=== PATIENT | male | born 1930 | race African-American/Black ===

== ENCOUNTER 2017-03-08 16:12 | Observation (INO) | payer MEDICARE, MEDICAID ==
[~2017-03-08] VITALS: Ht 167.6 cm; Wt 69.9 kg
[2017-03-08 17:35] VITALS: BP 165/89
[2017-03-08 17:36] LABS: BASOPHILS % (AUTO) 2.2 % (0.0-2.0); EOSINOPHILS % (AUTO) 3.1 % (0.0-3.0); LYMPHOCYTES % (AUTO) 20.8 % (20.0-45.0); MEAN CORPUSCULAR HEMOGLOBIN 32.9 PG (27.0-31.0); MEAN CORPUSCULAR HGB CONC 34.8 G/DL (32.0-36.0); MEAN CORPUSCULAR VOLUME 94 FL (80-99); MEAN PLATELET VOLUME 6.2 FL (6.5-10.1); MONOCYTES % (AUTO) 7.7 % (1.0-10.0); NEUTROPHILS % (AUTO) 66.2 % (45.0-75.0); PLATELET COUNT 179 K/UL (150-450); RED BLOOD COUNT 4.21 M/UL (4.70-6.10); RED CELL DISTRIBUTION WIDTH 12.7 % (11.6-14.8); WHITE BLOOD COUNT 8.9 K/UL (4.8-10.8)
[2017-03-08] MEDS ORDERED: D5 1/2NS 1000ml IV ONE (17:42)
[2017-03-08 17:45] LABS: TROPONIN I < 0.30 ng/mL (<=0.30)
[2017-03-08 17:48] LABS: ACETAMINOPHEN < 10 ug/mL (10-30); ALANINE AMINOTRANSFERASE 17 U/L (3-41); ALBUMIN/GLOBULIN RATIO 1.6 (1.0-2.7); ALCOHOL < 10 mg/dL; ANION GAP 16 (5-15); ASPARTATE AMINO TRANSFERASE 25 U/L (5-40); CALCIUM 10.2 mg/dL (8.6-10.2); CARBON DIOXIDE 23 mEQ/L (20-30); CHLORIDE 105 mEQ/L (98-107); CREATININE 1.6 mg/dL (0.7-1.2); HEMOLYSIS 20; POTASSIUM 4.2 mEQ/L (3.4-4.9); SODIUM 144 mEQ/L (135-145); TOTAL PROTEIN 7.3 g/dL (6.6-8.7)
[2017-03-08 17:59] LABS: CKMB 2.1 ng/mL (< 6.7)
[2017-03-08 18:10] LABS: BILIRUBIN,DIRECT 0.2 mg/dL (0.1-0.3)
--- NOTE | 2017-03-08 19:55 | Emergency Room Report ---
History of Present Illness General Chief Complaint: Altered Mental Status Source: EMS Present Illness HPI 87-year-old male presents ED for evaluation. Per EMS patient was found sitting on bench outside. Patient appears confused, altered. Patient is unable to provide any additional history at this time. Patient showing no signs of distress. No signs of injury. No other aggravating relieving factors. Denies any other associated symptoms Allergies: Coded Allergies: No Known Allergies (Unverified , 03/08/17) Patient History Past Medical History: none Past Surgical History: none Pertinent Family History: none Social History: Denies: smoking, alcohol use, drug use Immunizations: UTD Reviewed Nursing Documentation: PMH: Agreed, PSxH: Agreed Nursing Documentation-PMH Past Medical History: Deferred Review of Systems All Other Systems: negative except mentioned in HPI Physical Exam Vital Signs Date Time Temp Pulse Resp B/P (MAP) Pulse Ox O2 Delivery O2 Flow Rate FiO2 03/08/17 16:08 99.1 100 24 140/77 100 Room Air Sp02 EP Interpretation: reviewed, normal General Appearance: no apparent distress, alert, GCS 15, non-toxic Head: normocephalic, atraumatic Eyes: bilateral eye normal inspection, bilateral eye PERRL ENT: hearing grossly normal, normal pharynx, no angioedema, normal voice Neck: full range of motion, supple/symm/no masses Respiratory: chest non-tender, lungs clear, normal breath sounds, speaking full sentences Cardiovascular #1: regular rate, rhythm, no edema Cardiovascular #2: 2+ carotid (R), 2+ carotid (L), 2+ radial (R), 2+ radial (L) , 2+ dorsalis pedis (R), 2+ dorsalis pedis (L) Gastrointestinal: normal bowel sounds, non tender, soft, non-distended, no guarding, no rebound Rectal: deferred Genitourinary: normal inspection, no CVA tenderness Musculoskeletal: back normal, gait/station normal, normal range of motion, non- tender Neurologic: alert, motor strength/tone normal, sensory intact, other - confused Psychiatric: other - confused Reflexes: 3+ bicep (R), 3+ bicep (L), 3+ tricep (R), 3+ tricep (L), 3+ knee (R) , 3+ knee (L) Skin: normal color, no rash, warm/dry, well hydrated Lymphatic: no adenopathy Medical Decision Making Diagnostic Impression: Primary Impression: Altered mental status Qualified Codes: R41.82 - Altered mental status, unspecified Additional Impression: Dehydration ER Course Hospital Course 87-year-old male presents ED found outside on bench, confused Differential diagnoses include: OK/unstable angina, arrythmia, dehydration, CVA/ TIA Clinical course Patient placed on stretcher. on e/m engineer. After initial history and physical I ordered labs, EKG, chest x-ray, IVFs, CT Brain labs reviewed- no leukocytosis, hemoglobin/hematocrit ok, BUN/Cr elevated. Troponins negative EKG-1st degree av block, no acute ischemic changes interpreted by me Chest x-ray- no acute process CT brain-unremarkable Patient given IV fluids. Patient resides in a memory care facility. Case discussed with Dr. Ley and he agreed to accept the patient to his service for further care and support I. I feel this is a highly complex case requiring extensive working including EKG/Rhythm strip, Xray/CT/US, Blood/urine lab work, repeat exams while in ED, and administration of strong opiates/narcotics for pain control, admission to hospital or close patient follow up. Diagnosis - AMS, dehydration admitted to floor in serious condition Labs Test 03/08/17 17:10 03/08/17 17:55 White Blood Count 8.9 K/UL (4.8-10.8) Red Blood Count 4.21 M/UL (4.70-6.10) Hemoglobin 13.8 G/DL (14.2-18.0) Hematocrit 39.7 % (42.0-52.0) Mean Corpuscular Volume 94 FL (80-99) Mean Corpuscular Hemoglobin 32.9 PG (27.0-31.0) Mean Corpuscular Hemoglobin Concent 34.8 G/DL (32.0-36.0) Red Cell Distribution Width 12.7 % (11.6-14.8) Platelet Count 179 K/UL (150-450) Mean Platelet Volume 6.2 FL (6.5-10.1) Neutrophils (%) (Auto) 66.2 % (45.0-75.0) Lymphocytes (%) (Auto) 20.8 % (20.0-45.0) Monocytes (%) (Auto) 7.7 % (1.0-10.0) Eosinophils (%) (Auto) 3.1 % (0.0-3.0) Basophils (%) (Auto) 2.2 % (0.0-2.0) Sodium Level 144 mEQ/L (135-145) Potassium Level 4.2 mEQ/L (3.4-4.9) Chloride Level 105 mEQ/L (98-107) Carbon Dioxide Level 23 mEQ/L (20-30) Anion Gap 16 (5-15) Blood Urea Nitrogen 28 mg/dL (7-23) Creatinine 1.6 mg/dL (0.7-1.2) Estimat Glomerular Filtration Rate mL/min (>60) Glucose Level 139 mg/dL (74-106) Calcium Level 10.2 mg/dL (8.6-10.2) Total Bilirubin 1.1 mg/dL (0.0-1.2) Direct Bilirubin 0.2 mg/dL (0.1-0.3) Aspartate Amino Transf (AST/SGOT) 25 U/L (5-40) Alanine Aminotransferase (ALT/SGPT) 17 U/L (3-41) Alkaline Phosphatase 65 U/L (40-129) Total Creatine Kinase 159 U/L (38-174) Creatine Kinase MB 2.1 ng/mL (< 6.7) Creatine Kinase MB Relative Index 1.3 Troponin I < 0.30 ng/mL (<=0.30) Total Protein 7.3 g/dL (6.6-8.7) Albumin 4.5 g/dL (3.5-5.2) Globulin 2.8 g/dL Albumin/Globulin Ratio 1.6 (1.0-2.7) Salicylates Level < 1 mg/dL (10-30) Acetaminophen Level < 10 ug/mL (10-30) Serum Alcohol < 10 mg/dL Urine Opiates Screen Negative (NEGATIVE) Urine Barbiturates Screen Negative (NEGATIVE) Phencyclidine (PCP) Screen Negative (NEGATIVE) Urine Amphetamines Screen Negative (NEGATIVE) Urine Benzodiazepines Screen Negative (NEGATIVE) Urine Cocaine Screen Negative (NEGATIVE) Urine Marijuana (THC) Screen Negative (NEGATIVE) EKG Diagnostic Results Rate: normal Rhythm: other - 1st degree av block ST Segments: no acute changes ASA given to the pt in ED: No Rhythm Strip Diag. Results EP Interpretation: yes Rhythm: NSR, no PVC's, no ectopy Chest X-Ray Diagnostic Results Chest X-Ray Diagnostic Results : Chest X-Ray Ordered: Yes # of Views/Limited/Complete: 1 View Indication: Other - ams EP Interpretation: Yes Interpretation: no consolidation, no effusion, no pneumothorax, no acute cardiopulmonary disease Impression: No acute disease Interpreting ER Provider: Electronically signed by Gautam Cortes MD CT/MRI/US Diagnostic Results CT/MRI/US Diagnostic Results : Imaging Test Ordered: CT Head Impression no acute process Last Vital Signs Date Time Temp Pulse Resp B/P (MAP) Pulse Ox O2 Delivery O2 Flow Rate FiO2 03/08/17 17:35 99.1 78 18 165/89 99 Room Air Status: improved Disposition: ADMITTED INPATIENT Condition: Serious Referrals: NOT CHOSEN TEMO/,REFERRING (PCP) GAUTAM CORTES M.D. Mar 08, 2017 19:55
[2017-03-08] MEDS ORDERED: PLAVIX75 MG ORAL (21:14)
[2017-03-08] MEDS ORDERED: LEVOTHYROXINE100 MCG ORAL (21:14)
[2017-03-08] MEDS ORDERED: AMLODIPINE-ATO1 EAC1 ORAL (21:16)
[2017-03-08] MEDS ORDERED: XANAX0.25 MG ORAL (21:19)
[2017-03-08] MEDS ORDERED: TYLENOL EXTRA500 MG ORAL (21:20)
[2017-03-08 21:21] VITALS: BP 152/64
[2017-03-08 22:00] VITALS: BP 161/81
[2017-03-08] MEDS ORDERED: ALPRAZolam 0.25mg tab ORAL PRN (22:45)
[2017-03-08] MEDS ORDERED: Milk of Magnesia 30ml Ud ORAL PRN (22:45)
[2017-03-08] MEDS: D5 1/2NS 1,000 ML IV SCH (23:47)
[2017-03-09 04:30] VITALS: BP 155/77
--- NOTE | 2017-03-09 04:45 | History and Physical Report ---
DATE OF ADMISSION: 03/08/2017 CHIEF COMPLAINT AND REASON FOR HOSPITALIZATION: The patient is an 87-year-old man admitted with weakness and dehydration. HISTORY OF PRESENT ILLNESS: The patient lives in an assisted living facility. He is very hard of hearing and records accompanied the patient. I also spoke to his son, Dr. Colby Caldera, who filled me in on his history. The patient apparently was found on the street, very weak, unable to get up, and possibly dehydrated. He was apparently sitting on the ground and the paramedics were summoned. The patient has a history of a remote coronary stent many years ago, likely more than 20 years ago and a carotid endarterectomy. He is very hard of hearing. There is a history of hypothyroidism, on replacement, hypertension, and some mild cognitive impairment. PAST SURGICAL HISTORY: See history of present illness. MEDICATIONS: Plavix 75 mg daily, levothyroxine 100 mcg daily, amlodipine 5 mg daily, alprazolam 0.25 mg daily p.r.n., and Tylenol p.r.n. ALLERGIES: None known. SOCIAL HISTORY: He lives in an assisted living facility. SYSTEM REVIEW: HEENT: Hearing is very impaired. Vision is preserved. ENDOCRINE: History of hypothyroidism, on replacement. PULMONARY: No asthma, TB, or chronic cough. CARDIAC: History of remote coronary stent. No recent angina. No palpitations, arrhythmias, or congestive heart failure. GASTROINTESTINAL: No history of recurrent nausea, vomiting, or abdominal pain. GENITOURINARY: No dysuria or hematuria. NEUROLOGIC: No CVA, syncope, or seizures. PHYSICAL EXAMINATION: GENERAL: The patient is a well-developed man, alert, looks younger than his stated age, but is somewhat weak. VITAL SIGNS: Temperature 99.1 degrees, pulse 78, respirations 18, blood pressure 165/89, and pulse oximetry is 99%. HEENT: Sclerae are nonicteric. Ocular motions intact in all directions. Oral mucosa slightly dry. NECK: No adenopathy or thyroid enlargement. LUNGS: Clear. HEART: Regular rhythm. No murmur. ABDOMEN: Soft without organomegaly or masses. EXTREMITIES: No edema, cyanosis, or clubbing. NEUROLOGIC: He is alert and responsive. Ocular motions intact in all directions. Smile is symmetric. Tongue is midline. He moves all extremities. PERTINENT LABORATORIES: White count 8.9 and hemoglobin 13.8. Sodium 144, potassium 4.2, BUN 28, and creatinine 1.6. Glucose 139. Troponin less than 0.30. CK is 159. Liver enzymes are normal. Urinalysis pending. IMPRESSION: 1. Dehydration. 2. Heat exposure. 3. Episode of generalized weakness, likely due to the above. 4. Gait disorder secondary to the above. 5. History of hypothyroidism. 6. Remote history of coronary stenting. 7. History of hypertension. 8. History of hypothyroidism. 9. History of taking alprazolam. PLAN: The patient will be hydrated. We will check urine to make sure there is no urinary tract infection. We will watch if there are any new developments. We will respect directives for DNR as discussed with the patient's son. Joseph Ley M.D. DR: CHEYENNE JOB#: [id number] CC:
[2017-03-09 06:52] LABS: BASOPHILS % (AUTO) 1.6 % (0.0-2.0); EOSINOPHILS % (AUTO) 4.8 % (0.0-3.0); LYMPHOCYTES % (AUTO) 25.3 % (20.0-45.0); MEAN CORPUSCULAR HEMOGLOBIN 33.1 PG (27.0-31.0); MEAN CORPUSCULAR HGB CONC 34.2 G/DL (32.0-36.0); MEAN CORPUSCULAR VOLUME 97 FL (80-99); MEAN PLATELET VOLUME 7.3 FL (6.5-10.1); MONOCYTES % (AUTO) 8.5 % (1.0-10.0); NEUTROPHILS % (AUTO) 59.9 % (45.0-75.0); PLATELET COUNT 186 K/UL (150-450); RED BLOOD COUNT 3.99 M/UL (4.70-6.10); RED CELL DISTRIBUTION WIDTH 12.4 % (11.6-14.8); WHITE BLOOD COUNT 8.1 K/UL (4.8-10.8)
[2017-03-09 07:06] LABS: TROPONIN I < 0.30 ng/mL (<=0.30)
[2017-03-09 07:09] LABS: ALANINE AMINOTRANSFERASE 14 U/L (3-41); ALBUMIN/GLOBULIN RATIO 1.3 (1.0-2.7); ANION GAP 11 (5-15); ASPARTATE AMINO TRANSFERASE 21 U/L (5-40); CALCIUM 9.1 mg/dL (8.6-10.2); CARBON DIOXIDE 25 mEQ/L (20-30); CHLORIDE 104 mEQ/L (98-107); CREATININE 1.1 mg/dL (0.7-1.2); HEMOLYSIS 4; POTASSIUM 3.7 mEQ/L (3.4-4.9); SODIUM 140 mEQ/L (135-145); TOTAL PROTEIN 6.8 g/dL (6.6-8.7)
[2017-03-09 08:12] VITALS: BP 156/80
[2017-03-09] MEDS: Sulfacetamide 10% Opth Btl RIGHT EYE SCH ×2 (08:28→13:02)
[2017-03-09] MEDS: D5 1/2NS 1,000 ML IV SCH (08:37)
[2017-03-09 08:46] LABS: APPEARANCE,URINE CLEAR; KETONES,URINE NEGATIVE (NEGATIVE); LEUKOCYTE ESTERASE ,URINE 1+ (NEGATIVE); NITRITE,URINE NEGATIVE (NEGATIVE); PH,URINE 6 (4.5-8.0); PROTEIN,URINE NEGATIVE (NEGATIVE); UROBILINOGEN,URINE 4 MG/DL (0.0-1.0)
[2017-03-09 08:54] LABS: BACTERIA,URINE FEW /HPF; MUCUS,URINE FEW /LPF (NONE/OCC); SQUAMOUS EPITHELIAL CELL,UR OCCASIONAL /LPF (NONE/OCC); WBC,URINE 0-2 /HPF (0 - 0)
[2017-03-09] MEDS ORDERED: Heparin 5000 units/ml inj SUBQ SCH (09:00)
[2017-03-09] MEDS ORDERED: Sulfacetamide 10% Opth Btl RIGHT EYE SCH (09:00)
[2017-03-09 11:52] VITALS: BP 144/73
[2017-03-09 15:57] VITALS: BP 144/77
--- NOTE | 2017-03-09 23:00 | Discharge Summary ---
DATE OF ADMISSION: 03/08/2017 DATE OF DISCHARGE: 03/09/2017 PERTINENT HISTORY: The patient is an 87-year-old man who lives in assisted living facility. He was apparently found on the street, weak, unable to get up and walk possibly dehydrated. He was sitting on the ground. The paramedics were summoned. There is a remote history of coronary artery stent, history of hypothyroidism and impaired hearing. PERTINENT PHYSICAL FINDINGS: HEENT: The patient is very hard of hearing. Throat is clear. Oral mucosa is slightly dry. NECK: No adenopathy. LUNGS: Clear. HEART: Regular rhythm. No murmur. ABDOMEN: Soft without organomegaly or masses. EXTREMITIES: No edema. NEUROLOGIC: He is alert and responsive. There is no focal weakness. COURSE IN THE HOSPITAL: The patient was observed after being possibly over exposed in the heat and mildly dehydrated. His BUN 28 and creatinine 1.6 on admission and 23 and 1.1 on discharge after intravenous hydration. Serial troponins were normal. His exam remained stable. He did have some microscopic hematuria, 10 to 15 red cells per high-power field, and 0 to 2 white cells per high-power field, but no urinary symptoms. He was seen by physical therapy. He was able to ambulate with a cane and he had no prior back pain and a slightly unsteady gait but this was chronic. He felt improved and I discussed the situation with his family and he was discharged back to his assisted living facility in stable condition. FINAL DIAGNOSES: 1. Dehydration. 2. Heat exposure. 3. Chronic low back pain. 4. Gait disorder. 5. Remote history of coronary bypass surgery. 6. History of prior carotid surgery. 7. Gait disorder. DISCHARGE DISPOSITION: Back to his facility on a regular diet and as prior to admission medications. FOLLOWUP: Follow up by his primary care physician. Joseph Ley M.D. DR: PARKER JOB#: [id number] CC:
--- NOTE | 2017-03-10 08:36 | Diagnostic Imaging Report ---
Indication: Altered mental status Technique: spiral acquisitions obtained through the brain. Angled axial and coronal 5 x 5 mm slices were reconstructed. No IV contrast utilized. Radiation dose was minimized using automated exposure control Total dose length product 1351 mGycm. CTDIvol(s) 70 mGy Comparison: none FINDINGS: No acute hemorrhage or edema. No mass effect or midline shift. There is marked age-related enlargement of the ventricles and extra axial CSF spaces. There is periventricular deep white matter ischemic change. Normal christopher-white differentiation. There is evidence of prior bilateral cataract surgery. There is minimal bilateral ethmoid sinus and right maxillary sinus mucosal disease. There is extensive opacification and sclerosis of the mastoid air cells. Intact calvarium. IMPRESSION: Chronic and age-related changes. Negative for acute intracranial bleed or mass effect Evidence of chronic mastoid disease. Minimal ethmoid and right maxillary sinus disease This agrees with the preliminary interpretation provided overnight by [facility]. The CT scanner at [facility] is accredited by the [employer] and the scans are performed using protocols designed to limit radiation exposure to as low as reasonably achievable to attain images of sufficient resolution adequate for diagnostic evaluation
--- NOTE | 2017-03-10 08:38 | Diagnostic Imaging Report ---
Indication: Dyspnea Technique: One view of the chest Comparison: none Findings: Equivocal minimal bilateral costophrenic angle blunting. No acute infiltrates, effusions or congestion. Heart size is borderline enlarged. Aorta is tortuous ectatic and calcified. Calcifications are seen in the left axilla. Equivocal retrocardiac hiatal hernia incidentally noted Impression: Equivocal minimal bilateral costophrenic angle blunting, thickening versus fluid. No acute process otherwise Possible retrocardiac hiatal hernia This agrees with the preliminary interpretation provided overnight by [facility].
== END 2017-03-09 16:40 | disposition home or self-care (01) ==
LOC: EDBD 16:12 → EMR 16:50 → INTOOBSV 17:41 → 3E 17:41 → EDBEDREQ 19:46 → 4E 03-09 10:30
DX: E86.0 Dehydration (principal); X30.XXXA Exposure to excessive natural heat, initial encounter; Y92.89 Other specified places as the place of occurrence of the external cause; G89.29 Other chronic pain; M54.5 Low back pain; R26.9 Unspecified abnormalities of gait and mobility; H91.90 Unspecified hearing loss, unspecified ear; I44.0 Atrioventricular block, first degree; R53.1 Weakness; K44.9 Diaphragmatic hernia without obstruction or gangrene; H74.90 Unspecified disorder of middle ear and mastoid, unspecified ear; J32.2 Chronic ethmoidal sinusitis; J32.0 Chronic maxillary sinusitis; I10 Essential (primary) hypertension; Z79.02 Long term (current) use of antithrombotics/antiplatelets; Z95.1 Presence of aortocoronary bypass graft
CPT/HCPCS: 36415 ×2; 70450; 71010; 80053 ×2; 80300; 81001; 82248; 82550; 82553; 84439; 84443; 84480; 84484 ×2; 85025 ×2; 87081 ×2; 96360; 97110; 97116; 97161; 97530; 99285; G0378 ×2; G0480 ×3; J0360; 80329

== ENCOUNTER 2017-05-06 14:50 | Inpatient (IN) | payer MEDICARE, MEDICAID ==
[~2017-05-06] VITALS: Ht 167.6 cm; Wt 68.0 kg
[~2017-05-06 14:50] MED LIST: AMLODIPINE-ATO1 EAC1 ORAL; LEVOTHYROXINE100 MCG ORAL; PLAVIX75 MG ORAL; TYLENOL EXTRA500 MG ORAL; XANAX0.25 MG ORAL
[2017-05-06 14:55] VITALS: BP 187/95
[2017-05-06] MEDS ORDERED: QUETIAPINE FUMA25 MG ORAL (14:56)
[2017-05-06] MEDS ORDERED: ARICEPT5 MG ORAL (14:56)
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
[2017-05-06 16:01] LABS: APPEARANCE,URINE CLEAR; KETONES,URINE NEGATIVE (NEGATIVE); LEUKOCYTE ESTERASE ,URINE NEGATIVE (NEGATIVE); NITRITE,URINE NEGATIVE (NEGATIVE); PH,URINE 7 (4.5-8.0); PROTEIN,URINE 1+ (NEGATIVE); UROBILINOGEN,URINE 1 MG/DL (0.0-1.0)
--- NOTE | 2017-05-06 16:08 | Diagnostic Imaging Report ---
Indication: Shortness of breath Technique: One view of the chest Comparison: 03/08/2017 Findings: Lungs and pleural spaces are clear. Heart is enlarged there is tortuous ectatic and calcified. There is no significant change Impression: No acute process
[2017-05-06 16:17] LABS: BASOPHILS % (AUTO) 1.4 % (0.0-2.0); EOSINOPHILS % (AUTO) 4.5 % (0.0-3.0); LYMPHOCYTES % (AUTO) 33.2 % (20.0-45.0); MEAN CORPUSCULAR HEMOGLOBIN 31.8 PG (27.0-31.0); MEAN CORPUSCULAR HGB CONC 33.5 G/DL (32.0-36.0); MEAN CORPUSCULAR VOLUME 95 FL (80-99); MEAN PLATELET VOLUME 6.1 FL (6.5-10.1); MONOCYTES % (AUTO) 6.7 % (1.0-10.0); NEUTROPHILS % (AUTO) 54.2 % (45.0-75.0); PLATELET COUNT 215 K/UL (150-450); RED BLOOD COUNT 4.42 M/UL (4.70-6.10); RED CELL DISTRIBUTION WIDTH 12.7 % (11.6-14.8); WHITE BLOOD COUNT 7.2 K/UL (4.8-10.8)
[2017-05-06 16:27] LABS: BACTERIA,URINE FEW /HPF
[2017-05-06 16:29] LABS: ALANINE AMINOTRANSFERASE 33 U/L (12-78); ANION GAP 10 mmol/L (5-15); ASPARTATE AMINO TRANSFERASE 42 U/L (15-37); CALCIUM 9.5 MG/DL (8.5-10.1); CARBON DIOXIDE 27 MMOL/L (21-32); CHLORIDE 102 MMOL/L (98-107); CREATININE 1.2 MG/DL (0.55-1.30); POTASSIUM 3.4 MMOL/L (3.5-5.1); SODIUM 139 MMOL/L (136-145); TOTAL PROTEIN 8.1 G/DL (6.4-8.2)
[2017-05-06] MEDS ORDERED: NITROFURANTOIN100 M2 ORAL (16:50)
[2017-05-06 17:30] VITALS: BP 160/96
[2017-05-06 19:15] VITALS: BP 140/98
[2017-05-06] MEDS ORDERED: Haloperidol 5mg/ml Inj IM ONE (20:30)
[2017-05-06 20:45] VITALS: BP 150/97
[2017-05-06 21:15] VITALS: BP 142/98
[2017-05-06] MEDS ORDERED: Milk of Magnesia 30ml Ud ORAL PRN (22:45)
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
[2017-05-07] MEDS: Acetaminophen 500mg (ES) tab ORAL SCH ×5 (01:00→17:00)
[2017-05-07] MEDS ORDERED: Acetaminophen 500mg (ES) tab ORAL SCH (01:00)
[2017-05-07 04:00] VITALS: BP 148/92
[2017-05-07 06:33] LABS: BASOPHILS % (AUTO) 1.3 % (0.0-2.0); LYMPHOCYTES % (AUTO) 34.9 % (20.0-45.0); MEAN CORPUSCULAR HEMOGLOBIN 32.3 PG (27.0-31.0); MEAN CORPUSCULAR HGB CONC 33.7 G/DL (32.0-36.0); MEAN CORPUSCULAR VOLUME 96 FL (80-99); MEAN PLATELET VOLUME 6.4 FL (6.5-10.1); MONOCYTES % (AUTO) 6.9 % (1.0-10.0); NEUTROPHILS % (AUTO) 50.8 % (45.0-75.0); PLATELET COUNT 213 K/UL (150-450); RED CELL DISTRIBUTION WIDTH 12.8 % (11.6-14.8)
[2017-05-07 07:28] LABS: ALANINE AMINOTRANSFERASE 35 U/L (12-78); ANION GAP 10 mmol/L (5-15); ASPARTATE AMINO TRANSFERASE 43 U/L (15-37); CALCIUM 9.6 MG/DL (8.5-10.1); CARBON DIOXIDE 26 MMOL/L (21-32); CHLORIDE 105 MMOL/L (98-107); CREATININE 1.2 MG/DL (0.55-1.30); POTASSIUM 3.7 MMOL/L (3.5-5.1); SODIUM 141 MMOL/L (136-145); THYROID STIMULATING HORMONE 79.481 uiU/mL (0.360-3.740); TOTAL PROTEIN 7.6 G/DL (6.4-8.2)
[2017-05-07] MEDS ORDERED: Enoxaparin 30mg Inj SUBQ SCH (09:00)
--- NOTE | 2017-05-07 13:50 | General Progress Note ---
Assessment/Plan Problem List: (1) Hypothyroid ICD Codes: E03.9 - Hypothyroidism, unspecified SNOMED: 35836521 (2) Alzheimer's dementia ICD Codes: G30.9 - Alzheimer's disease, unspecified SNOMED: 86418238 (3) CAD (coronary artery disease) ICD Codes: I25.10 - Atherosclerotic heart disease of [place] coronary artery without angina pectoris SNOMED: 54343623 (4) Agitation ICD Codes: R45.1 - Restlessness and agitation SNOMED: 74535912 (5) Altered mental status ICD Codes: R41.82 - Altered mental status, unspecified SNOMED: 294340034 Assessment/Plan Psychiatry seeing, started seroquel, high tsh increase synthroid 150 mcg, paranoid thoughts per books salesperson Subjective ROS Limited/Unobtainable: Yes Allergies: Coded Allergies: No Known Allergies (Unverified , 03/08/17) Objective Last 24 Hour Vital Signs Date Time Temp Pulse Resp B/P (MAP) Pulse Ox O2 Delivery O2 Flow Rate FiO2 05/07/17 10:21 96.6 05/07/17 09:19 58 125/81 05/07/17 04:00 97.0 56 20 148/92 100 Room Air 05/06/17 21:15 97.2 80 21 142/98 100 Room Air 05/06/17 20:54 97.8 85 17 150/97 100 Room Air 79 05/06/17 20:45 97.8 79 17 150/97 100 Room Air 05/06/17 19:15 97.6 82 17 140/98 98 Room Air 05/06/17 17:30 85 18 160/96 100 Room Air 05/06/17 14:55 97.2 71 12 187/95 99 Room Air 05/06/17 14:46 98.2 65 20 163/99 97 Room Air Laboratory Tests 05/06/17 15:40: White Blood Count 7.2, Red Blood Count 4.42L, Hemoglobin 14.1L, Hematocrit 42.0 , Mean Corpuscular Volume 95, Mean Corpuscular Hemoglobin 31.8H, Mean Corpuscular Hemoglobin Concent 33.5, Red Cell Distribution Width 12.7, Platelet Count 215, Mean Platelet Volume 6.1L, Neutrophils (%) (Auto) 54.2, Lymphocytes ( %) (Auto) 33.2, Monocytes (%) (Auto) 6.7, Eosinophils (%) (Auto) 4.5H, Basophils (%) (Auto) 1.4, Urine Color Pale yellow, Urine Appearance Clear, Urine pH 7, Urine Specific [place] 1.010, Urine Protein 1+H, Urine Glucose (UA) Negative, Urine Ketones Negative, Urine Occult Blood 3+H, Urine Nitrite Negative , Urine Bilirubin Negative, Urine Urobilinogen 1H, Urine Leukocyte Esterase Negative, Urine RBC 2-4H, Urine WBC 2-4, Urine Squamous Epithelial Cells None, Urine Bacteria Few, Sodium Level 139, Potassium Level 3.4L, Chloride Level 102, Carbon Dioxide Level 27, Anion Gap 10, Blood Urea Nitrogen 19H, Creatinine 1.2, Estimat Glomerular Filtration Rate , Glucose Level 121H, Calcium Level 9.5, Total Bilirubin 0.7, Aspartate Amino Transf (AST/SGOT) 42H, Alanine Aminotransferase (ALT/SGPT) 33, Alkaline Phosphatase 91, Troponin I 0.000, Total Protein 8.1, Albumin 4.1, Globulin 4.0, Albumin/Globulin Ratio 1.0 05/07/17 05:25: White Blood Count 8.0, Red Blood Count 4.50L, Hemoglobin 14.6, Hematocrit 43.3, Mean Corpuscular Volume 96, Mean Corpuscular Hemoglobin 32.3H, Mean Corpuscular Hemoglobin Concent 33.7, Red Cell Distribution Width 12.8, Platelet Count 213, Mean Platelet Volume 6.4L, Neutrophils (%) (Auto) 50.8, Lymphocytes (%) (Auto) 34.9, Monocytes (%) (Auto) 6.9, Eosinophils (%) (Auto) 6.0H, Basophils (%) (Auto ) 1.3, Sodium Level 141, Potassium Level 3.7, Chloride Level 105, Carbon Dioxide Level 26, Anion Gap 10, Blood Urea Nitrogen 19H, Creatinine 1.2, Estimat Glomerular Filtration Rate , Glucose Level 107H, Calcium Level 9.6, Total Bilirubin 0.7, Aspartate Amino Transf (AST/SGOT) 43H, Alanine Aminotransferase (ALT/SGPT) 35, Alkaline Phosphatase 73, Total Protein 7.6, Albumin 3.8, Globulin 3.8, Albumin/Globulin Ratio 1.0, Thyroid Stimulating Hormone (TSH) 79.481H Height (Feet): 5 Height (Inches): 6.00 Weight (Pounds): 150 General Appearance: WD/WN, no apparent distress EENT: normal ENT inspection Neck: normal alignment Cardiovascular: normal rate, regular rhythm Respiratory/Chest: lungs clear, normal breath sounds Abdomen: normal bowel sounds, non tender Edema: no edema noted Arm (L), no edema noted Arm (R), no edema noted Leg (L), no edema noted Leg (R), no edema noted Pedal (L), no edema noted Pedal (R), no edema noted Generalized 

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
--- NOTE | 2017-05-07 15:36 | Cardiology Report ---
APPROVED REPORT EKG Measurement Heart [id number] Sinus rhythm with 1st degree AV block Left anterior fascicular block Abnormal ECG
[2017-05-07 20:00] VITALS: BP 145/90
[2017-05-07] MEDS ORDERED: Acetaminophen 500mg (ES) tab ORAL PRN (20:00)
[2017-05-07] MEDS: Atorvastatin 20mg tab ORAL SCH (21:40)
[2017-05-08 04:00] VITALS: BP 137/99
[2017-05-08 08:00] VITALS: BP 123/80
[2017-05-08] MEDS: Enoxaparin 40mg Inj SUBQ SCH (08:45)
[2017-05-08 12:00] VITALS: BP_SYST 109; BP_SYST 123; BP_DIAS 80; BP_DIAS 88
[2017-05-08] MEDS ORDERED: Haloperidol Decanoate 50mg Inj IM ONE (12:00)
--- NOTE | 2017-05-08 14:30 | General Progress Note ---
Assessment/Plan Problem List: (1) Hypothyroid ICD Codes: E03.9 - Hypothyroidism, unspecified SNOMED: 37334940 (2) Alzheimer's dementia ICD Codes: G30.9 - Alzheimer's disease, unspecified SNOMED: 16160586 (3) CAD (coronary artery disease) ICD Codes: I25.10 - Atherosclerotic heart disease of [place] coronary artery without angina pectoris SNOMED: 86795760 (4) Agitation ICD Codes: R45.1 - Restlessness and agitation SNOMED: 73645528 (5) Altered mental status ICD Codes: R41.82 - Altered mental status, unspecified SNOMED: 896950228 Assessment/Plan Psychiatry seeing, started zyprexa , high tsh increase synthroid 150 mcg, paranoid thoughts per garbage worker, dc planning Subjective HEENT: Reports: other - deaf Cardiovascular: Reports: no symptoms Respiratory: Reports: no symptoms Gastrointestinal/Abdominal: Reports: no symptoms Genitourinary: Reports: no symptoms Neurologic/Psychiatric: Reports: emotional problems Endocrine: Reports: no symptoms Hematologic/Lymphatic: Reports: no symptoms Allergies: Coded Allergies: No Known Allergies (Unverified , 03/08/17) Objective Last 24 Hour Vital Signs Date Time Temp Pulse Resp B/P (MAP) Pulse Ox O2 Delivery O2 Flow Rate FiO2 05/08/17 12:00 97.0 67 18 123/80 100 Room Air 05/08/17 12:00 97.3 66 18 109/88 99 Nasal Cannula 05/08/17 08:43 67 123/80 05/08/17 08:00 97.0 67 18 123/80 100 Room Air 05/08/17 04:00 97.3 58 20 137/99 98 Room Air 05/07/17 20:00 97.8 59 18 145/90 99 Room Air 05/07/17 17:43 55 167/89 Height (Feet): 5 Height (Inches): 6.00 Weight (Pounds): 150 General Appearance: no apparent distress EENT: other - deaf Neck: normal alignment Cardiovascular: normal rate, regular rhythm Respiratory/Chest: lungs clear, normal breath sounds Abdomen: non tender, soft, no organomegaly Extremities: other - no edema Neurologic: 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
[2017-05-08 16:22] VITALS: BP 139/90
[2017-05-08] MEDS: Triamcinolone 0.1% 15gm Cr TOPIC SCH (17:54)
[2017-05-08 17:56] VITALS: BP 148/84
[2017-05-08 20:00] VITALS: BP 108/72
[2017-05-08] MEDS: Atorvastatin 20mg tab ORAL SCH (20:35)
[2017-05-09] VITALS: BP 167/84
[2017-05-09 00:33] VITALS: BP 144/82
[2017-05-09 04:00] VITALS: BP_SYST 102; BP_SYST 148; BP_DIAS 62; BP_DIAS 77
[2017-05-09 08:15] VITALS: BP 147/78
[2017-05-09] MEDS: Enoxaparin 40mg Inj SUBQ SCH (08:39)
[2017-05-09] MEDS: Triamcinolone 0.1% 15gm Cr TOPIC SCH ×2 (08:40→12:03)
[2017-05-09 11:38] VITALS: BP 132/87
[2017-05-09] MEDS ORDERED: NORVASC5 MG ORAL (14:39)
[2017-05-09] MEDS ORDERED: OLANZAPINE5 MG ORAL (14:39)
[2017-05-09] MEDS ORDERED: LEVOTHYROXINE150 MCG ORAL (14:39)
[2017-05-09] MEDS ORDERED: LIPITOR20 MG ORAL (14:39)
[2017-05-09 16:00] VITALS: BP 147/66
--- NOTE | 2017-05-09 17:51 | General Progress Note ---
Assessment/Plan Status: stable, progressing Assessment/Plan Schizophrenia PTSD -zyprexa 10mg qhs -haldol dec 25mg q monthly Subjective Date patient seen: May 08, 2017 Neurologic/Psychiatric: Reports: anxiety, depressed, emotional problems Allergies: Coded Allergies: No Known Allergies (Unverified , 03/08/17) Subjective the pt is less delusional tolerating meds. the pt has hx of ptsd and has been a [employer] at [employer] Objective Last 24 Hour Vital Signs Date Time Temp Pulse Resp B/P (MAP) Pulse Ox O2 Delivery O2 Flow Rate FiO2 05/09/17 16:00 96.3 57 19 147/66 98 Room Air 05/09/17 11:38 97.8 55 20 132/87 96 Room Air 05/09/17 08:35 57 147/78 05/09/17 08:15 97.9 57 20 147/78 96 Room Air 05/09/17 04:00 98.4 53 18 148/77 97 Room Air 05/09/17 00:33 144/82 05/09/17 00:00 97.8 58 20 167/84 98 Room Air 05/08/17 20:00 99.7 82 20 108/72 95 Room Air 05/08/17 17:56 74 148/84 05/08/17 17:55 74 148/84 Intake and Output 05/09/17 05/10/17 19:00 07:00 Intake Total 450 ml Output Total 500 ml Balance -50 ml Intake Oral 450 ml Output Urine Total 500 ml Height (Feet): 5 Height (Inches): 6.00 Weight (Pounds): 150 General Appearance: alert, moderate distress, agitated, combative Neurologic: alert, responsive, disoriented, depressed affect Eitan Smith M.D. May 09, 2017 17:51
--- NOTE | 2017-05-09 17:52 | General Progress Note ---
Assessment/Plan Status: stable, progressing Assessment/Plan Schizophrenia PTSD -zyprexa 10mg qhs -haldol dec 25mg q monthly Subjective Neurologic/Psychiatric: Reports: anxiety, depressed, emotional problems Allergies: Coded Allergies: No Known Allergies (Unverified , 03/08/17) Subjective the pt is less delusional tolerating meds. the pt was asleep snoring Objective Last 24 Hour Vital Signs Date Time Temp Pulse Resp B/P (MAP) Pulse Ox O2 Delivery O2 Flow Rate FiO2 05/09/17 16:00 96.3 57 19 147/66 98 Room Air 05/09/17 11:38 97.8 55 20 132/87 96 Room Air 05/09/17 08:35 57 147/78 05/09/17 08:15 97.9 57 20 147/78 96 Room Air 05/09/17 04:00 98.4 53 18 148/77 97 Room Air 05/09/17 00:33 144/82 05/09/17 00:00 97.8 58 20 167/84 98 Room Air 05/08/17 20:00 99.7 82 20 108/72 95 Room Air 05/08/17 17:56 74 148/84 05/08/17 17:55 74 148/84 Intake and Output 05/09/17 05/10/17 19:00 07:00 Intake Total 450 ml Output Total 500 ml Balance -50 ml Intake Oral 450 ml Output Urine Total 500 ml Height (Feet): 5 Height (Inches): 6.00 Weight (Pounds): 150 General Appearance: no apparent distress, alert, confused Neurologic: alert, responsive, disoriented, depressed affect Eitan Smith M.D. May 09, 2017 17:52
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
== END 2017-05-09 17:30 | DRG 57 ==
LOC: EDBD 14:50 → EMR 16:50 → 4E 18:20 → EDBEDREQ 18:37 → 4E 20:55
DX: G30.9 Alzheimer's disease, unspecified (principal); E86.0 Dehydration; F02.80 Dementia in other diseases classified elsewhere, unspecified severity, without behavioral disturbance, psychotic disturbance, mood disturbance, and anxiety; R45.1 Restlessness and agitation; F20.9 Schizophrenia, unspecified; E03.9 Hypothyroidism, unspecified; I25.10 Atherosclerotic heart disease of native coronary artery without angina pectoris; G89.29 Other chronic pain; M54.5 Low back pain; R26.9 Unspecified abnormalities of gait and mobility; E78.5 Hyperlipidemia, unspecified; I10 Essential (primary) hypertension; F43.10 Post-traumatic stress disorder, unspecified; E87.6 Hypokalemia; Z98.61 Coronary angioplasty status
CPT/HCPCS: 36415; 71010; 80053; 81003; 84443; 84484; 85025; 87081; 93005; 99285